=== PATIENT | female | born 1995 | race Caucasian/White ===

== ENCOUNTER 2023-12-05 15:08 | Emergency (ER) | payer BC ==
[~2023-12-05] VITALS: Ht 162.6 cm; Wt 72.6 kg
[2023-12-05 15:22] VITALS: BP_SYST 122; PULSE 85; RESP 22; TEMP 98.3; O2SAT 98
[2023-12-05 15:46] LABS: BASOPHILS % (AUTO) 0.3 % (0.0-2.0); EOSINOPHILS # (AUTO) 0.1 K/uL (0.0-0.4); EOSINOPHILS % (AUTO) 0.6 % (0.0-4.0); HEMATOCRIT 42.8 % (36-48); HEMOGLOBIN 14.8 g/dL (12.0-16.0); LYMPHOCYTES # (AUTO) 2.9 K/uL (1.0-5.5); LYMPHOCYTES % (AUTO) 25.1 % (20.5-51.5); MEAN CORPUSCULAR HEMOGLOBIN 31 pg (27-31); MEAN CORPUSCULAR HGB CONC 35 % (32-36); MEAN CORPUSCULAR VOLUME 90 fL (79.0-98.0); MONOCYTES # (AUTO) 0.8 K/uL (0.0-1.0); MONOCYTES % (AUTO) 6.9 % (1.7-9.3); NEUTROPHILS # (AUTO) 7.8 K/uL (1.8-7.7); NEUTROPHILS % (AUTO) 67.1 % (40.0-70.0); PLATELET COUNT (AUTO) 237 K/uL (130-430); RED BLOOD CELL COUNT(AUTO) 4.76 MIL/uL (4.2-6.2); RED CELL DISTRIBUTION WIDTH 12.8 % (9.0-15.0); WHITE BLOOD COUNT (AUTO) 11.6 K/uL (4.8-10.8)
[2023-12-05 16:03] LABS: ALBUMIN 3.8 g/dL (3.4-4.8); BILIRUBIN,DIRECT 0.1 mg/dL (0.0-0.3); CALCIUM 8.9 mg/dL (8.4-11.0); CREATININE 0.83 mg/dL (0.55-1.30); POTASSIUM 3.7 mmol/L (3.5-5.1); TOTAL BILIRUBIN 0.3 mg/dL (0.0-1.0)
[2023-12-05 16:06] LABS: SERUM HCG (QUALITATIVE) NEGATIVE (NEGATIVE)
[2023-12-05 16:06] LABS: BILIRUBIN,URINE NEGATIVE (NEGATIVE); BLOOD, URINE NEGATIVE (NEGATIVE); COLOR,URINE YELLOW (YELLOW); GLUCOSE,URINE NEGATIVE (NEGATIVE); KETONES,URINE NEGATIVE (NEGATIVE); LEUKOCYTE ESTERASE ,URINE NEGATIVE (NEGATIVE); NITRITE, URINE NEGATIVE (NEGATIVE); PH,URINE 6.5 (5.0-8.0); PROTEIN URINE NEGATIVE (NEGATIVE); UROBILINOGEN,URINE 0.2 (0.2-1.0)
[2023-12-05 16:16] LABS: PROTHROMBIN TIME 10.5 SECS (9.5-12.5)
[2023-12-05 16:19] LABS: CLARITY/URINE SLIGHTLY HAZY (CLEAR)
[2023-12-05] MEDS ORDERED: TRAM50TA2 PO (17:36)
[2023-12-05] MEDS ORDERED: IBUP-1971 PO (17:36)
[2023-12-05 17:47] VITALS: BP_SYST 122; PULSE 85; RESP 22; TEMP 98.3; O2SAT 98
== END 2023-12-05 17:47 | disposition home or self-care (01) ==
LOC: SED 15:08
DX: R10.2 Pelvic and perineal pain (principal); R10.31 Right lower quadrant pain; Z79.899 Other long term (current) drug therapy
CPT/HCPCS: 36415; 80048; 80076; 81001; 81003; 82150; 83605; 83690; 84703; 85025; 85610; 85730; 99284